=== PATIENT | male | born 1975 | race Two or more races ===

== ENCOUNTER 2024-02-26 03:13 | Emergency (ER) | payer OTHER ==
[~2024-02-26] VITALS: Ht 177.8 cm; Wt 117.9 kg
[2024-02-26] MEDS ORDERED: IBUprofen 800 MG TABLET PO STA (04:56)
== END 2024-02-26 05:02 | disposition home or self-care (01) ==
LOC: ER 03:15
DX: M79.672 Pain in left foot (principal); R42 Dizziness and giddiness; Z88.0 Allergy status to penicillin